=== PATIENT | female | born 1985 | race Caucasian/White ===

== ENCOUNTER 2019-04-25 04:27 | Inpatient (IN) | payer OTHER ==
[~2019-04-25] VITALS: Ht 172.7 cm; Wt 187.0 kg
[2019-04-25] MEDS ORDERED: PRENATABS RX T1 EACH PO (04:29)
== END 2019-04-27 12:27 | disposition home or self-care (01) | DRG 807 ==
LOC: OB/GYN 04:27 → LDR 04:27 → OB/GYN 06:22
PROVIDERS: ADMIT Obstetrics & Gynecology
PROC: 10E0XZZ Delivery of Products of Conception, External Approach (ICD-10-PCS; principal; 2019-04-25)
PROC: 4A1HXCZ Monitoring of Products of Conception, Cardiac Rate, External Approach (ICD-10-PCS; 2019-04-25)
DX: O80 Encounter for full-term uncomplicated delivery (principal); Z37.0 Single live birth; Z3A.39 39 weeks gestation of pregnancy; Z22.330 Carrier of Group B streptococcus